=== PATIENT | male | born 1960 | race Caucasian/White ===

== ENCOUNTER 2023-08-16 13:17 | Observation (INO) | payer MEDICARE, OTHER ==
--- NOTE | 2023-08-16 14:15 | ED ---
Abdominal Pain HPI - General Chief Complaint: Abdominal Pain Stated Complaint: Burning pain in abd, edema Time Seen by Provider: 08/16/23 13:47 Source: patient, RN notes reviewed Mode of arrival: ambulatory Limitations: no limitations - History of Present Illness Initial Comments: This is a 63-year-old male who presents to the emergency department for ab dominal pain and swelling. Patient has a history of liver disease requiring paracentesis. States that he had a paracentesis 3.5 months ago and the swelling has been increasing since. Describes this as a burning pain. Also reports swelling in his lower extremities. Denies any chest pain or shortness of breath. He is currently at [facility] for alcoholism and has been there for about 2 weeks. MD Complaint: abdominal pain - Related Data Home Medications Medication Instructions Recorded Confirmed Acetaminophen Tab [Tylenol] 650 mg PO Q4H PRN 08/16/23 08/16/23 Calcium/Magnesium/Zinc/Vitamin D 1 tab PO TID PRN 08/16/23 08/16/23 334/134/5mg Celecoxib [CeleBREX] 200 mg PO DAILY 08/16/23 08/16/23 Chlorpheniramine Maleate 4 mg PO Q4H PRN 08/16/23 08/16/23 [Chlor-Trimeton] Furosemide [Lasix] 20 mg PO DAILY 08/16/23 08/16/23 Loperamide [Imodium] 4 mg PO QID PRN 08/16/23 08/16/23 Magnesium Hydroxide [Milk of 2,400 mg PO BID PRN 08/16/23 08/16/23 Magnesia] Melatonin 10 mg PO HS 08/16/23 08/16/23 Metoprolol Succinate (ER) [Toprol 25 mg PO DAILY 08/16/23 08/16/23 Xl] Multivitamins, Thera [Multivitamin 1 tab PO DAILY 08/16/23 08/16/23 (formulary)] Mylanta 30 ml PO Q4H PRN 08/16/23 08/16/23 Sacubitril/Valsartan [Entresto 24 1 tab PO BID 08/16/23 08/16/23 mg-26 mg Tablet] Thiamine [Vitamin B-1] 100 mg PO DAILY 08/16/23 08/16/23 ondansetron HCL [Zofran] 8 mg PO Q6H PRN 08/16/23 08/16/23 Allergies Allergy/AdvReac Type Severity Reaction Status Date / Time No Known Allergies Allergy Verified 08/16/23 18:28 Review of Systems ROS Statement: Those systems with pertinent positive or pertinent negative responses have been documented in the HPI. ROS Other: All systems not noted in ROS Statement are negative. Past Medical History Past Medical History: Heart Failure, Hypertension, Liver Disease History of Any Multi-Drug Resistant Organisms: None Reported Additional Past Surgical History / Comment(s): pericentisis Past Psychological History: No Psychological Hx Reported Smoking Status: Current every day smoker Past Alcohol Use History: Daily, Heavy Past Drug Use History: None Reported General Exam Limitations: no limitations General appearance: alert, in no apparent distress Head exam: Present: atraumatic, normocephalic, normal inspection Respiratory exam: Present: normal lung sounds bilaterally. Absent: respiratory distress, wheezes, rales, rhonchi, stridor Cardiovascular Exam: Present: regular rate, normal rhythm, normal heart sounds. Absent: systolic murmur, diastolic murmur, rubs, gallop, clicks GI/Abdominal exam: Present: distended Neurological exam: Present: alert, oriented X3, CN II-XII intact Psychiatric exam: Present: normal affect, normal mood Skin exam: Present: warm, dry, intact, normal color. Absent: rash Course Vital Signs 08/16/23 08/16/23 13:39 16:00 Temperature 97.8 F Pulse Rate 74 75 Respiratory 18 18 Rate Blood Pressure 110/74 124/83 O2 Sat by Pulse 98 95 Oximetry Medical Decision Making - Medical Decision Making This is a 63 year old male who presents to the emergency department for abdominal pain. Was pt. sent in by a medical professional or institution? @ -[facility] Did you speak to anyone other than the patient for history? @ -No Did you review nursing and triage notes? @ -Yes, and I agree, it is accurate with regards to the patient's symptoms. Were old charts reviewed? @ -No Differential Diagnosis? @ -Differential Abdominal Pain Men: Appendicitis, cholecystitis, diverticulosis, ischemic bowel, pancreatitis, hepatitis, UTI, gastroenteritis, AAA, incarcerated hernia, bowel obstruction, constipation, inflammatory bowel, hepatitis, peptic ulcer disease, splenic infarction, perforated viscus, testicular torsion, this is not meant to be an all-inclusive list EKG interpreted by me (3pts min.)? @ -EKG interpreted by me demonstrating the following: Sinus rhythm. Ventricular rate 63 bpm, LA interval 192 ms, QRS duration 93 ms, QTc 411 ms. X-rays interpreted by me (1pt min.)? @ -Not obtained CT interpreted by me (1pt min.)? @ -CT scan of the abdomen and pelvis obtained. My interpretation identifies ascites. U/S interpreted by me (1pt. min.)? @ -Not obtained What testing was considered but not performed? (CT, X-rays, U/S, labs)? Why? @ -None What meds were considered but not given? Why? @ -None Did you discuss the management of the patient with other professionals? @ -Yes, Chrissie Calixto who accepts the patient for admission. Did you reconcile home meds? @ -Yes Was smoking cessation discussed for >3mins.? @ -I discussed smoking cessation for greater than 3 minutes. The risk of smoking were discussed with the patient including but not limited to risks of cancer, stroke, coronary artery disease and COPD. Also discussed with patient were multiple methods of quitting smoking. Lastly we discussed the financial cost of smoking. Was critical care preformed (if so, how long)? @ -No Were there social determinants of health that impacted care today? How? (Homelessness, low income, unemployed, alcoholism, drug addiction, transportation, low edu. Level, literacy, decrease access to med. care, long-term, rehab)? @ -Alcoholism, leading to the cirrhosis and ascites, which is the reason for his visit today. Was there de-escalation of care discussed even if they declined? (Discuss DNR or withdrawal of care, Hospice)? @ -No What co-morbidities impacted this encounter? (DM, HTN, Smoking, COPD, CAD, Cancer, CVA, Hep., AIDS, mental health diagnosis, sleep apnea, morbid obesity)? @ -Alcoholism, cirrhosis Was patient admitted / discharged? @ -Admitted. Lab work demonstrates mildly elevated alkaline phosphatase of 207 and lipase of 433. CT scan of the abdomen and pelvis obtained demonstrating cirrhotic hepatic morphology and a moderate to large amount of abdominopelvic ascites. Patient admitted to medicine for ascites, consult placed for interve ntional radiology for paracentesis. Undiagnosed new problem with uncertain prognosis? @ -None Drug Therapy requiring intensive monitoring for toxicity (Heparin, Nitro, Insulin, Cardizem)? @ -None Were any procedures done? @ -None Diagnosis/symptom? @ -Ascites Acute, or Chronic, or Acute on Chronic? @ -Acute Uncomplicated (without systemic symptoms) or Complicated (systemic symptoms)? @ -Complicated Side effects of treatment? @ -None Exacerbation, Progression, or Severe Exacerbation] @ -Not applicable Poses a threat to life or bodily function? @ -Yes This case was discussed in detail with the attending ED physician, Dr. Bravo. Presentation, findings, and treatment plan discussed in detail as well. - Lab Data Result diagrams: 08/16/23 14:20 08/16/23 14:20 Lab Results 08/16/23 08/16/23 08/16/23 Range/Units 14:20 14:20 14:20 WBC 9.1 (3.8-10.6) k/uL RBC 3.80 L (4.30-5.90) m/uL Hgb 12.1 L (13.0-17.5) gm/dL Hct 37.0 L (39.0-53.0) % MCV 97.4 (80.0-100.0) fL MCH 31.7 (25.0-35.0) pg MCHC 32.6 (31.0-37.0) g/dL RDW 14.2 (11.5-15.5) % Plt Count 264 (150-450) k/uL MPV 8.3 Neutrophils % 62 % Lymphocytes % 26 % Monocytes % 7 % Eosinophils % 2 % Basophils % 0 % Neutrophils # 5.6 (1.3-7.7) k/uL Lymphocytes # 2.3 (1.0-4.8) k/uL Monocytes # 0.6 (0-1.0) k/uL Eosinophils # 0.2 (0-0.7) k/uL Basophils # 0.0 (0-0.2) k/uL PT 11.1 (10.0-12.5) sec INR 1.0 (<1.2) APTT 32.7 H (22.0-30.0) sec Sodium 137 (137-145) mmol/L Potassium 4.5 (3.5-5.1) mmol/L Chloride 106 (98-107) mmol/L Carbon Dioxide 26 (22-30) mmol/L Anion Gap 5 mmol/L BUN 19 (9-20) mg/dL Creatinine 0.74 (0.66-1.25) mg/dL Est GFR (CKD-EPI)AfAm >90 (>60 ml/min/1.73 sqM) Est GFR (CKD-EPI)NonAf >90 (>60 ml/min/1.73 sqM) Glucose 99 (74-99) mg/dL Plasma Lactic Acid Felipe (0.7-2.0) mmol/L Calcium 9.0 (8.4-10.2) mg/dL Total Bilirubin 0.6 (0.2-1.3) mg/dL Conjugated Bilirubin 0.0 (0.0-0.3) mg/dL Unconjugated Bilirubin 0.2 (0.0-1.1) mg/dL Delta Bilirubin 0.4 H (0.0-0.2) mg/dL AST 47 (17-59) U/L ALT 28 (4-49) U/L Alkaline Phosphatase 207 H (38-126) U/L NT-Pro-B Natriuret Pep 69 pg/mL Total Protein 7.3 (6.3-8.2) g/dL Albumin 3.7 (3.5-5.0) g/dL Amylase 79 (30-110) U/L Lipase 433 H (23-300) U/L 08/16/23 Range/Units 14:20 WBC (3.8-10.6) k/uL RBC (4.30-5.90) m/uL Hgb (13.0-17.5) gm/dL Hct (39.0-53.0) % MCV (80.0-100.0) fL MCH (25.0-35.0) pg MCHC (31.0-37.0) g/dL RDW (11.5-15.5) % Plt Count (150-450) k/uL MPV Neutrophils % % Lymphocytes % % Monocytes % % Eosinophils % % Basophils % % Neutrophils # (1.3-7.7) k/uL Lymphocytes # (1.0-4.8) k/uL Monocytes # (0-1.0) k/uL Eosinophils # (0-0.7) k/uL Basophils # (0-0.2) k/uL PT (10.0-12.5) sec INR (<1.2) APTT (22.0-30.0) sec Sodium (137-145) mmol/L Potassium (3.5-5.1) mmol/L Chloride (98-107) mmol/L Carbon Dioxide (22-30) mmol/L Anion Gap mmol/L BUN (9-20) mg/dL Creatinine (0.66-1.25) mg/dL Est GFR (CKD-EPI)AfAm (>60 ml/min/1.73 sqM) Est GFR (CKD-EPI)NonAf (>60 ml/min/1.73 sqM) Glucose (74-99) mg/dL Plasma Lactic Acid Felipe 0.8 (0.7-2.0) mmol/L Calcium (8.4-10.2) mg/dL Total Bilirubin (0.2-1.3) mg/dL Conjugated Bilirubin (0.0-0.3) mg/dL Unconjugated Bilirubin (0.0-1.1) mg/dL Delta Bilirubin (0.0-0.2) mg/dL AST (17-59) U/L ALT (4-49) U/L Alkaline Phosphatase (38-126) U/L NT-Pro-B Natriuret Pep pg/mL Total Protein (6.3-8.2) g/dL Albumin (3.5-5.0) g/dL Amylase (30-110) U/L Lipase (23-300) U/L - Radiology Data Radiology results: report reviewed, image reviewed Disposition Clinical Impression: Ascites, Cirrhosis, Nicotine dependence Disposition: ADMITTED IP TO THIS [facility] Time of Disposition: 17:58
[2023-08-16 14:46] LABS: Basophils % (A) 0 %; Eosinophils # (A) 0.2 k/uL (0-0.7); Eosinophils % (A) 2 %; HGB 12.1 gm/dL (13.0-17.5); Lymphocytes # (A) 2.3 k/uL (1.0-4.8); Lymphocytes % (A) 26 %; MCH 31.7 pg (25.0-35.0); MCHC 32.6 g/dL (31.0-37.0); MCV 97.4 fL (80.0-100.0); Mean Platelet Volume 8.3; Monocytes # (A) 0.6 k/uL (0-1.0); Monocytes % (A) 7 %; Neutrophils # (A) 5.6 k/uL (1.3-7.7); Neutrophils % (A) 62 %; Platelet Count 264 k/uL (150-450); RDW 14.2 % (11.5-15.5); WBC 9.1 k/uL (3.8-10.6)
[2023-08-16 14:59] LABS: ALT 28 U/L (4-49); AST 47 U/L (17-59); African American GFR (CKD) >90 (>60 ml/min/1.73 sqM); Albumin 3.7 g/dL (3.5-5.0); Alkaline Phosphatase 207 U/L (38-126); Amylase 79 U/L (30-110); Anion Gap 5 mmol/L; Bilirubin, Delta 0.4 mg/dL (0.0-0.2); Bilirubin,Unconjugated 0.2 mg/dL (0.0-1.1); Blood Urea Nitrogen 19 mg/dL (9-20); Carbon Dioxide 26 mmol/L (22-30); Chloride 106 mmol/L (98-107); Glucose 99 mg/dL (74-99); Lipase 433 U/L (23-300); Non-African American GFR(CKD) >90 (>60 ml/min/1.73 sqM); Potassium 4.5 mmol/L (3.5-5.1); Sodium 137 mmol/L (137-145); Total Bilirubin 0.6 mg/dL (0.2-1.3); Total Protein 7.3 g/dL (6.3-8.2)
[2023-08-16 15:03] LABS: Partial Thromboplastin Time 32.7 sec (22.0-30.0); Prothrombin Time 11.1 sec (10.0-12.5)
[2023-08-16 15:08] LABS: NT-Pro-B-Type Natriuretic Pept 69 pg/mL
--- NOTE | 2023-08-16 17:40 | CT ---
EXAMINATION TYPE: CT abdomen pelvis w con CT DLP: 1520.9 mGycm, Automated exposure control for dose reduction was used. DATE OF EXAM: 08/16/2023 3:38 PM COMPARISON: None. CLINICAL INDICATION:Male, 63 years old with history of Abdominal distention; abd swelling/ ascites TECHNIQUE: Axial CT of the abdomen and pelvis. Sagittal and coronal reformats were created on a [employer] workstation. Contrast used:100 mL of Isovue 300 with IV Contrast, (none if empty) Oral contrast used: without Oral Contrast (none if empty) FINDINGS: LOWER CHEST: No basilar lung infiltrate. Heart size is normal. Moderate calcification of the visualiz ed coronary arteries. Partially visualized aortic valve calcification. No pericardial effusion. ABDOMEN LIVER: Cirrhotic hepatic morphology. No focal lesion is detected. GALLBLADDER AND BILE DUCTS: Gallbladder is contracted around multiple small calcified gallstones. The re is pericholecystic fluid likely related to the ascites. PANCREAS: Unremarkable. SPLEEN: Mildly prominent size 13.3 cm, otherwise unremarkable ADRENAL GLANDS: Unremarkable. KIDNEYS AND URETERS: Kidneys enhance symmetrically. There is a 15 mm cyst in the posterior right kidn ey. No visible calculi. No hydronephrosis. PELVIS BLADDER: Unremarkable REPRODUCTIVE: Unremarkable. ABDOMEN & PELVIS STOMACH AND BOWEL: Stomach and small bowel are nondistended, no evidence of obstruction. What appea rs to be the appendix is within normal limits. There is moderate amount of stool throughout the colon . Multiple sigmoid region diverticula without signs of diverticulitis. PERITONEUM/RETROPERITONEUM: No evidence of pneumoperitoneum. There is a moderate to large volume of a bdominopelvic ascites. There is haziness in the mesenteric fat likely related to mesenteric edema. So me areas of the intraperitoneal fat have a vaguely micronodular appearance, and the possibility of ve ry early implants cannot be entirely excluded. There is no omental caking seen. VASCULATURE: Portal veins are enhancing and the main portal vein measures 17.5 mm. SMV and splenic ve in are patent. There are multiple generally small venous collaterals seen in the abdomen including p erigastric varices. IVC is normal caliber. Moderate calcification of the aorta and branches without s ignificant stenosis of the mesenteric or renal arteries. No AAA. LYMPH NODES: No enlarged nodes by CT size criteria. SOFT TISSUE/ABDOMINAL WALL: Unremarkable MUSCULOSKELETAL: No acute osseous abnormalities. Moderate disc degeneration changes are present throu ghout the thoracolumbar spine. IMPRESSION: 1. Cirrhotic hepatic morphology. 2. Findings suggestive of portal hypertension. 3. Moderate to large volume of abdominopelvic ascites. 4. Colonic diverticulosis without evidence of diverticulitis. 5. Moderate atherosclerotic calcification of the abdominal aorta, and coronary arteries. 6. Cholelithiasis.
[2023-08-16] MEDS ORDERED: KETOROLAC 15 MG/ML 1 ML VIAL IVP PRN (18:05)
[2023-08-16] MEDS ORDERED: NALOXONE 0.4 MG/ML 1 ML VIAL IV PRN (18:05)
[2023-08-16] MEDS ORDERED: ACETAMINOPHEN TAB 325 MG TAB PO PRN ×2 (18:05→19:41)
[2023-08-16] MEDS ORDERED: ONDANSETRON 4 MG/2 ML VIAL IVP PRN (18:05)
[2023-08-16] MEDS ORDERED: NON FORMULARY DRUG (Calcium/Magnesium/Zinc/Vitamin D 334/134/5mg 1 TAB) PO PRN (19:41)
[2023-08-16] MEDS ORDERED: MAG HYDROX/AL HYDROX/SIMETH 30 ML CUP PO PRN (19:41)
[2023-08-16] MEDS ORDERED: diphenhydrAMINE 25 MG CAP PO PRN (19:41)
[2023-08-16] MEDS ORDERED: ONDANSETRON 4 MG TAB PO PRN (19:41)
[2023-08-16] MEDS ORDERED: LOPERAMIDE 2 MG CAP PO PRN (19:41)
[2023-08-16] MEDS: SACUBITRIL/VALSARTAN 24 MG-26 MG TABLET PO SCH (22:39)
[2023-08-16] MEDS: MELATONIN 5 MG TABLET PO SCH (22:39)
--- NOTE | 2023-08-17 11:49 | US ---
EXAMINATION TYPE: US paracentesis abd w/image (diagnostic and therapeutic) DATE OF EXAM: 08/17/2023 CLINICAL HISTORY: 63-year-old male alcohol use, liver disease, ascites fluid, referred for paracente sis. The procedure was discussed with the patient. The risks, complications, benefits, and alternatives we re discussed and any questions were answered. Informed consent was obtained. The patient was placed s upine on the ultrasound table and prepped and draped in the usual sterile fashion. All elements of maximal barrier technique were utilized. Ultrasound was utilized to determine the precise skin entry site along the right lower quadrant/left flank. A 5 [place] One-Step catheter and trocar technique was utilized to access the ascites collection under direct ultrasound guidance. Two 60 mL syringes were filled with a clear, straw-colored ascites fluid, labeled, and sent for labor atory analysis. Subsequently, approximately 5.2 liters of clear, straw-colored fluid was removed. Catheter was removed, hemostasis obtained, and a dressing placed. The patient was stable throughout the procedure and remained stable upon discharge from Department of Radiology. IMPRESSION: Successful diagnostic and therapeutic paracentesis under ultrasound guidance. 5.2 L of fluid removed.
[2023-08-17] MEDS: METOPROLOL SUCCINATE (ER) 25 MG TAB.ER.24H PO SCH (12:04)
[2023-08-17] MEDS: MELOXICAM 7.5 MG TAB PO SCH (12:04)
[2023-08-17] MEDS: MULTIVITAMINS, THERA 1 EACH TAB PO SCH (12:04)
[2023-08-17] MEDS: FUROSEMIDE 20 MG TAB PO SCH (12:04)
[2023-08-17] MEDS: THIAMINE 100 MG TAB PO SCH (12:05)
[2023-08-17] MEDS: PANTOPRAZOLE 40 MG/10 ML VIAL IV SCH (12:36)
[2023-08-17] MEDS: ALBUMIN HUMAN 25% 50 ML in EMPTY BAG 1 BAG IVPB SCH (12:37)
[2023-08-17 13:41] VITALS: BMI 29.2
--- NOTE | 2023-08-17 20:21 | P.HPIM ---
History of Present Illness H&P Date: 08/17/23 Chief Complaint: Distended abdomen This is a pleasant 63-year-old patient, follows with Dr. Brett Castorena. Patient currently in rehab for alcohol at [facility] for last 2 weeks. Was smoking up to 2 weeks ago. Patient was diagnosed with cirrhosis about 2 years ago[address] Did see Dr. Chava Mejias from GI. Patient been having increasing swelling of the abdomen for 2 weeks with some discomfort. No fever no chills. No change of consciousness. Some shortness of breath. Edema. Came in for the same. Last drink was about 3 weeks ago. Review of systems: GEN.: Tired EYES: None HEENT: None NECK: None RESPIRATORY: [Some shortness of breath CARDIOVASCULAR: None GASTROINTESTINAL: As above GENITOURINARY: None MUSCULOSKELETAL: None LYMPHATICS: None HEMATOLOGICAL: None PSYCHIATRY: None NEUROLOGICAL: None Social history: Lives alone. Smoked 2 packs a day for many years. Stopped 2 weeks ago. Drinking alcohol for long time last drink about 3 weeks ago. Physical examination: VITAL SIGNS: 97.6, 88, 16, 122 x 72, 95% room air GENERAL: BMI 29.3,. Laying in bed not in distress EYES: Pupils equal. Conjunctiva nolberto l. HEENT: External appearance of nose and ears normal, oral cavity grossly normal. NECK: JVD not raised; masses not palpable. HEART: First and second heart sounds are normal; no edema. LUNGS: Respiratory rate normal; decreased breath sounds. ABDOMEN: Soft, distended nontender, liver spleen not palpable, no masses palpable. PSYCH: Alert and oriented x3; mood and affect nolberto l. MUSCULOSKELETAL:No Clubbing/cyanosis;muscles-grossly intact NEUROLOGICAL: Cranial nerves grossly intact; no facial asymmetry, power and sensation grossly intact. LYMPHATICS: No lymph nodes palpable in the axilla and neck INVESTIGATIONS, reviewed in the clinical context: August 20, 2023: White count 9.1 hemoglobin 12.1 platelets 264 sodium 137 potassium 4.5 BUN 19 creatinine 0.74 AST 47 ALT 28 lipase 433 amylase 79 EKG tracing personally reviewed by me-normal sinus rhythm. Poor R wave progression. CT abdomen pelvis: Cirrhosis. Evidence of portal hypertension. Moderate to large ascites. Colonic diverticulosis. Gallstones. Assessment plan: -Symptomatic large ascites secondary to portal hypertension secondary to cirrhosis. For large-volume paracentesis Fluid restriction. Low-sodium diet. Add Aldactone. -Cirrhosis secondary to alcoholism Patient does follow with Dr. Chava Mejias -Alcohol use disorder Thiamine. Multivitamin. Folic acid. Patient is currently at [facility] for rehab -Chronic congestive heart failure from systolic dysfunction. EF not known. Toprol-XL. Entresto. -COPD no current smoker Albuterol as needed -Left shoulder pain Stop Celebrex. Use topical NSAID. -Full code Care was discussed with the patient. Questions answered. Paracentesis. Past Medical History Past Medical History: Heart Failure, GI Bleed, Hypertension, Liver Disease Additional Past Medical History / Comment(s): Left shoulder injury due to fall 6 months ago with steroid injection History of Any Multi-Drug Resistant Organisms: None Reported Additional Past Surgical History / Comment(s): pericentisis Past Anesthesia/Blood Transfusion Reactions: No Reported Reaction Past Psychological History: No Psychological Hx Reported Smoking Status: Current every day smoker Past Alcohol Use History: Daily, Heavy Additional Past Alcohol Use History / Comment(s): has been in rehab for etoh for past 2 weeks Past Drug Use History: None Reported - Past Family History Father Family Medical History: Liver Disease Additional Family Medical History / Comment(s): Etoh Mother Family Medical History: Diabetes Mellitus Medications and Allergies Home Medications Medication Instructions Recorded Confirmed Type Acetaminophen Tab [Tylenol] 650 mg PO Q4H PRN 08/16/23 08/16/23 History Calcium/Magnesium/Zinc/Vitamin D 1 tab PO TID PRN 08/16/23 08/16/23 History 334/134/5mg Celecoxib [CeleBREX] 200 mg PO DAILY 08/16/23 08/16/23 History Chlorpheniramine Maleate 4 mg PO Q4H PRN 08/16/23 08/16/23 History [Chlor-Trimeton] Furosemide [Lasix] 20 mg PO DAILY 08/16/23 08/16/23 History Loperamide [Imodium] 4 mg PO QID PRN 08/16/23 08/16/23 History Magnesium Hydroxide [Milk of 2,400 mg PO BID PRN 08/16/23 08/16/23 History Magnesia] Melatonin 10 mg PO HS 08/16/23 08/16/23 History Metoprolol Succinate (ER) [Toprol 25 mg PO DAILY 08/16/23 08/16/23 History Xl] Multivitamins, Thera [Multivitamin 1 tab PO DAILY 08/16/23 08/16/23 History (formulary)] Mylanta 30 ml PO Q4H PRN 08/16/23 08/16/23 History Sacubitril/Valsartan [Entresto 24 1 tab PO BID 08/16/23 08/16/23 History mg-26 mg Tablet] Thiamine [Vitamin B-1] 100 mg PO DAILY 08/16/23 08/16/23 History ondansetron HCL [Zofran] 8 mg PO Q6H PRN 08/16/23 08/16/23 History Allergies Allergy/AdvReac Type Severity Reaction Status Date / Time No Known Allergies Allergy Verified 08/17/23 10:29 Physical Exam Vitals: Vital Signs Temp Pulse Pulse Resp BP BP Pulse Ox 08/17/23 08:00 97.6 F 88 122/72 95 08/17/23 02:52 98.4 F 72 13 117/73 96 08/16/23 20:55 98.8 F 78 15 154/85 97 08/16/23 20:15 87 18 128/70 98 08/16/23 16:00 75 18 124/83 95 08/16/23 13:39 97.8 F 74 18 110/74 98 Intake and Output 08/16/23 08/17/23 08/17/23 22:59 06:59 14:59 Other: # Voids 3 Weight 95.254 kg Results CBC & Chem 7: 08/16/23 14:20 08/16/23 14:20 Labs: Abnormal Lab Results - Last 24 Hours (Table) 08/16/23 08/16/23 08/16/23 Range/Units 14:20 14:20 14:20 RBC 3.80 L (4.30-5.90) m/uL Hgb 12.1 L (13.0-17.5) gm/dL Hct 37.0 L (39.0-53.0) % APTT 32.7 H (22.0-30.0) sec Delta Bilirubin 0.4 H (0.0-0.2) mg/dL Alkaline Phosphatase 207 H (38-126) U/L Lipase 433 H (23-300) U/L Thrombosis Risk Factor Assmnt - Choose All That Apply Each Factor Represents 1 point: Swollen legs (current) Other Risk Factors: Yes Each Risk Factor Represents 2 Points: Age 61-74 years Other congenital or acquired thrombophilia - If yes, enter type in comment: No Thrombosis Risk Factor Assessment Total Risk Factor Score: 3 Thrombosis Risk Factor Assessment Level: Moderate Risk
[2023-08-18 04:08] LABS: Glucose, BF Source Ascites; Glucose, Body Fluid 106 mg/dL; LDH, Body Fluid Source Ascites; T. Protein, Body Fluid Source Ascites; Total Protein, Body Fluid >3600 mg/dL
[2023-08-18 04:50] LABS: Appearance,BF Clear (Clear)
[2023-08-18 07:01] LABS: African American GFR (CKD) >90 (>60 ml/min/1.73 sqM); Anion Gap 9 mmol/L; Blood Urea Nitrogen 16 mg/dL (9-20); Calcium 8.9 mg/dL (8.4-10.2); Carbon Dioxide 24 mmol/L (22-30); Chloride 106 mmol/L (98-107); Glucose 84 mg/dL (74-99); Non-African American GFR(CKD) >90 (>60 ml/min/1.73 sqM); Potassium 4.2 mmol/L (3.5-5.1); Sodium 139 mmol/L (137-145)
[2023-08-18] MEDS: SPIRONOLACTONE 25 MG TAB PO SCH (08:49)
[2023-08-18] MEDS ORDERED: FUROSEMIDE 40 MG TAB PO SCH (09:00)
[2023-08-18] MEDS: MAGNESIUM HYDROXIDE 2,400 MG/30 ML CUP PO PRN (10:08)
[2023-08-18 11:14] VITALS: BP 134/75; PULSE 70; RESP 15; TEMP 97.9
--- NOTE | 2023-08-18 19:36 | P.DS ---
Providers Date of admission: 08/16/23 18:05 Expected date of discharge: 08/18/23 Attending physician: Javon Zamora Primary care physician: Brett Castorena [facility] Course: Chief Complaint: Distended abdomen This is a pleasant 63-year-old patient, follows with Dr. Brett Castorena. Patient currently in rehab for alcohol at [facility] for last 2 weeks. Was smoking up to 2 weeks ago. Patient was diagnosed with cirrhosis about 2 years ago[address] Did see Dr. Chava Mejias from GI. Patient been having increasing swelling of the abdomen for 2 weeks with some discomfort. No fever no chills. No change of consciousne ss. Some shortness of breath. Edema. Came in for the same. Last drink was about 3 weeks ago. August 17: Feeling well. Eating well. Was given a laxative for bowel movement. Patient be returning to [facility]. Medications adjusted. The restriction. Low-sodium diet. Follow-up with Dr. Chava Mejias outpatient. Discussion and discharge planning more than 35 minutes Social history: Lives alone. Smoked 2 packs a day for many years. Stopped 2 weeks ago. Drinking alcohol for long time last drink about 3 weeks ago. Physical examination: VITAL SIGNS: 97.9, 70, 15, 134 personally 5, 95% room air GENERAL: Comfortable EYES: Pupils equal. Conjunctiva nolberto l. HEENT: External appearance of nose and ears normal, oral cavity grossly normal. NECK: JVD not raised; masses not palpable. HEART: First and second heart sounds are normal; no edema. LUNGS: Respiratory rate normal; decreased breath sounds. ABDOMEN: Soft, distended nontender, liver spleen not palpable, no masses palpable. PSYCH: Alert and oriented x3; mood and affect nolberto l. MUSCULOSKELETAL:No Clubbing/cyanosis;muscles-grossly intact NEUROLOGICAL: Cranial nerves grossly intact; no facial asymmetry, power and sensation grossly intact. INVESTIGATIONS, reviewed in the clinical context: August 17: Potassium 4.2 creatinine 0.77 August 16, 2023: White count 9.1 hemoglobin 12.1 platelets 264 sodium 137 potassium 4.5 BUN 19 creatinine 0.74 AST 47 ALT 28 lipase 433 amylase 79 EKG tracing personally reviewed by me-normal sinus rhythm. Poor R wave progression. CT abdomen pelvis: Cirrhosis. Evidence of portal hypertension. Moderate to large ascites. Colonic diverticulosis. Gallstones. Assessment plan: -Symptomatic large ascites secondary to portal hypertension secondary to cirrhosis. 5.2 L of acetic fluid removed. Albumin given. Fluid restriction. Low-sodium diet. Aldactone -Cirrhosis secondary to alcoholism Patient does follow with Dr. Chava Mejias -Alcohol use disorder Thiamine. Multivitamin. Folic acid. Patient is currently at [facility] for rehab -Chronic congestive heart failure from systolic dysfunction. EF not known. Toprol-XL. Entresto. -COPD no current smoker Albuterol as needed -Left shoulder pain Stop Celebrex. Diclofenac gel -Full code Disposition: [facility] Past Medical History Past Medical History: Heart Failure, GI Bleed, Hypertension, Liver Disease Additional Past Medical History / Comment(s): Left shoulder injury due to fall 6 months ago with steroid injection History of Any Multi-Drug Resistant Organisms: None Reported Additional Past Surgical History / Comment(s): pericentisis Past Anesthesia/Blood Transfusion Reactions: No Reported Reaction Past Psychological History: No Psychological Hx Reported Smoking Status: Current every day smoker Past Alcohol Use History: Daily, Heavy Additional Past Alcohol Use History / Comment(s): has been in rehab for etoh for past 2 weeks Past Drug Use History: None Reported Plan - Discharge Summary Discharge Rx Participant: No New Discharge Prescriptions: New Spironolactone [Aldactone] 100 mg PO DAILY #30 tab Diclofenac Sodium Gel [Voltaren 1% Gel] 2 gm TOPICAL BID #100 gm Continue Mylanta 30 ml PO Q4H PRN PRN Reason: Gi Upset Acetaminophen Tab [Tylenol] 650 mg PO Q4H PRN PRN Reason: Fever And/ Or Pain Melatonin 10 mg PO HS Multivitamins, Thera [Multivitamin (formulary)] 1 tab PO DAILY Sacubitril/Valsartan [Entresto 24 mg-26 mg Tablet] 1 tab PO BID Thiamine [Vitamin B-1] 100 mg PO DAILY Calcium/Magnesium/Zinc/Vitamin D 334/134/5mg 1 tab PO TID PRN PRN Reason: Muscle Spasm Chlorpheniramine Maleate [Chlor-Trimeton] 4 mg PO Q4H PRN PRN Reason: Allergy Symptoms Furosemide [Lasix] 20 mg PO DAILY Loperamide [Imodium] 4 mg PO QID PRN PRN Reason: Diarrhea Magnesium Hydroxide [Milk of Magnesia] 2,400 mg PO BID PRN PRN Reason: Gi Upset Metoprolol Succinate (ER) [Toprol XL] 25 mg PO DAILY ondansetron HCL [Zofran] 8 mg PO Q6H PRN PRN Reason: Nausea And Vomiting Discontinued Celecoxib [CeleBREX] 200 mg PO DAILY Discharge Medication List Acetaminophen Tab [Tylenol] 650 mg PO Q4H PRN 08/16/23 [History] Calcium/Magnesium/Zinc/Vitamin D 334/134/5mg 1 tab PO TID PRN 08/16/23 [History] Chlorpheniramine Maleate [Chlor-Trimeton] 4 mg PO Q4H PRN 08/16/23 [History] Furosemide [Lasix] 20 mg PO DAILY 08/16/23 [History] Loperamide [Imodium] 4 mg PO QID PRN 08/16/23 [History] Magnesium Hydroxide [Milk of Magnesia] 2,400 mg PO BID PRN 08/16/23 [History] Melatonin 10 mg PO HS 08/16/23 [History] Metoprolol Succinate (ER) [Toprol XL] 25 mg PO DAILY 08/16/23 [History] Multivitamins, Thera [Multivitamin (formulary)] 1 tab PO DAILY 08/16/23 [History] Mylanta 30 ml PO Q4H PRN 08/16/23 [History] Sacubitril/Valsartan [Entresto 24 mg-26 mg Tablet] 1 tab PO BID 08/16/23 [History] Thiamine [Vitamin B-1] 100 mg PO DAILY 08/16/23 [History] ondansetron HCL [Zofran] 8 mg PO Q6H PRN 08/16/23 [History] Diclofenac Sodium Gel [Voltaren 1% Gel] 2 gm TOPICAL BID #100 gm 08/18/23 [Rx] Spironolactone [Aldactone] 100 mg PO DAILY #30 tab 08/18/23 [Rx] Follow up Appointment(s)/Referral(s): Brett Castorena MD [Primary Care Provider] - 1-2 days Melissa Mejias MD [STAFF PHYSICIAN] - 10 Days Activity/Diet/Wound Care/Special Instructions: low sodium diet fluid restrict 2000 cc/day Discharge Disposition: OTHER INSTITUTION NOT DEFINED
== END 2023-08-18 15:08 | disposition other institution (70) ==
LOC: EC 13:17 → MERGE 18:05 → 4SSUR 18:05
PROVIDERS: ADMIT Hospitalist; ATTEND Hospitalist
DX: K70.31 Alcoholic cirrhosis of liver with ascites (principal); K76.6 Portal hypertension; I11.0 Hypertensive heart disease with heart failure; I50.22 Chronic systolic (congestive) heart failure; F10.20 Alcohol dependence, uncomplicated; K57.30 Diverticulosis of large intestine without perforation or abscess without bleeding; K80.20 Calculus of gallbladder without cholecystitis without obstruction; M25.512 Pain in left shoulder; F17.210 Nicotine dependence, cigarettes, uncomplicated; Z79.1 Long term (current) use of non-steroidal anti-inflammatories (NSAID); Z79.899 Other long term (current) drug therapy
CPT/HCPCS: 99285; 36415; 93005; 83880; 80053; 80048; 89050; 82150; 82248; 83605; 83690; 85025; 85610; 85730; 87070; 87205; 87075; 82945; 83615; 84157; 49083; 74177; G0378 ×3; P9047; Q9967

== ENCOUNTER 2024-02-22 10:03 | Observation (INO) | payer MEDICARE, OTHER ==
--- NOTE | 2024-02-22 10:50 | ED ---
General Adult HPI - General Chief complaint: Shortness of Breath Stated complaint: abd swelling Time Seen by Provider: 02/22/24 10:25 Source: patient, RN notes reviewed Mode of arrival: ambulatory Limitations: no limitations - History of Present Illness Initial comments: Patient is a 64-year-old male presenting to the emergency department with concerns for abdominal distention. Symptoms have progressed over several weeks. Patient has history of cirrhosis with similar symptoms previously. Patient has had previous therapeutic paracentesis for this. Patient states abdomen is distended and is causing some mild shortness of breath. Patient also has chronic cough from smoking. Patient has history of alcohol use however discontinued alcohol. - Related Data Home Medications Medication Instructions Recorded Confirmed Acetaminophen Tab [Tylenol] 650 mg PO Q4H PRN 08/16/23 08/16/23 Calcium/Magnesium/Zinc/Vitamin D 1 tab PO TID PRN 08/16/23 08/16/23 334/134/5mg Chlorpheniramine Maleate 4 mg PO Q4H PRN 08/16/23 08/16/23 [Chlor-Trimeton] Furosemide [Lasix] 20 mg PO DAILY 08/16/23 08/16/23 Loperamide [Imodium] 4 mg PO QID PRN 08/16/23 08/16/23 Magnesium Hydroxide [Milk of 2,400 mg PO BID PRN 08/16/23 08/16/23 Magnesia] Melatonin 10 mg PO HS 08/16/23 08/16/23 Metoprolol Succinate (ER) [Toprol 25 mg PO DAILY 08/16/23 08/16/23 XL] Multivitamins, Thera [Multivitamin 1 tab PO DAILY 08/16/23 08/16/23 (formulary)] Mylanta 30 ml PO Q4H PRN 08/16/23 08/16/23 Sacubitril/Valsartan [Entresto 24 1 tab PO BID 08/16/23 08/16/23 mg-26 mg Tablet] Thiamine [Vitamin B-1] 100 mg PO DAILY 08/16/23 08/16/23 ondansetron HCL [Zofran] 8 mg PO Q6H PRN 08/16/23 08/16/23 Previous Rx's Medication Instructions Recorded Diclofenac Sodium Gel [Voltaren 1% 2 gm TOPICAL BID #100 gm 04/23/24 Gel] Spironolactone [Aldactone] 100 mg PO DAILY #30 tab 08/18/23 Allergies Allergy/AdvReac Type Severity Reaction Status Date / Time No Known Allergies Allergy Verified 08/17/23 10:29 Review of Systems ROS Statement: Those systems with pertinent positive or pertinent negative responses have been documented in the HPI. ROS Other: All systems not noted in ROS Statement are negative. Constitutional: Denies: fever Eyes: Denies: eye pain ENT: Denies: ear pain Respiratory: Reports: as per HPI Cardiovascular: Denies: chest pain Gastrointestinal: Reports: as per HPI Genitourinary: Denies: dysuria Musculoskeletal: Denies: back pain Past Medical History Past Medical History: Heart Failure, GI Bleed, Hypertension, Liver Disease Additional Past Medical History / Comment(s): Left shoulder injury due to fall 6 months ago with steroid injection History of Any Multi-Drug Resistant Organisms: None Reported Additional Past Surgical History / Comment(s): pericentisis Past Anesthesia/Blood Transfusion Reactions: No Reported Reaction Past Psychological History: No Psychological Hx Reported Smoking Status: Current every day smoker Past Alcohol Use History: None Reported Past Drug Use History: Marijuana - Past Family History Father Family Medical History: Liver Disease Additional Family Medical History / Comment(s): Etoh Mother Family Medical History: Diabetes Mellitus General Exam Limitations: no limitations General appearance: alert, in no apparent distress Head exam: Present: normocephalic Eye exam: Present: normal appearance Neck exam: Present: normal inspection Respiratory exam: Present: wheezes Cardiovascular Exam: Present: regular rate, normal rhythm GI/Abdominal exam: Present: distended, tenderness (Minimal diffuse tenderness), normal bowel sounds. Absent: guarding, rebound, rigid, pulsatile mass Extremities exam: Absent: calf tenderness Neurological exam: Present: alert Psychiatric exam: Present: normal affect, normal mood Skin exam: Present: normal color Course Vital Signs 02/22/24 02/22/24 02/22/24 10:11 10:19 11:15 Temperature 97.5 F L Pulse Rate 107 H 82 Respiratory 24 18 Rate Blood Pressure 147/82 O2 Sat by Pulse 98 Oximetry 02/22/24 11:24 Temperature Pulse Rate 80 Respiratory Rate Blood Pressure O2 Sat by Pulse Oximetry Medical Decision Making - Medical Decision Making Was pt. sent in by a medical professional or institution (, PA, PROTECTIVE SIGNAL INSTALLER, urgent care, hospital, or skilled nursing...) When possible be specific @ -No Did you speak to anyone other than the patient for history (EMS, parent, family, police, friend...)? What history was obtained from this source @ -No Did you review nursing and triage notes (agree or disagree)? Why? @ -I reviewed and agree with nursing and triage notes Were old charts reviewed (outside hosp., previous admission, EMS record, old EKG, old radiological studies, urgent care reports/EKG's, skilled nursing records)? Report findings @ -No old charts were reviewed Differential Diagnosis (chest pain, altered mental status, abdominal pain women, abdominal pain men, vaginal bleeding, weakness, fever, dyspnea, syncope, headache, dizziness, GI bleed, back pain, seizure, CVA, palpatations, mental health, musculoskeletal)? @ -Differential Abdominal Pain Men: Appendicitis, cholecystitis, diverticulosis, ischemic bowel, pancreatitis, hepatitis, UTI, gastroenteritis, AAA, incarcerated hernia, bowel obstruction, constipation, inflammatory bowel, hepatitis, peptic ulcer disease, splenic infarction, perforated viscus, testicular torsion, this is not meant to be an all-inclusive list EKG interpreted by me (3pts min.). @ -As above X-rays interpreted by me (1pt min.). @ -Chest and abdominal x-ray showed nonspecific findings CT interpreted by me (1pt min.). @ -None done U/S interpreted by me (1pt. min.). @ -None done What testing was considered but not performed or refused? (CT, X-rays, U/S, labs)? Why? @ -None What meds were considered but not given or refused? Why? @ -None Did you discuss the management of the patient with other professionals (professionals i.e. DrAlaina, PA, PROTECTIVE SIGNAL INSTALLER, lab, RT, psych nurse, mental health social worker, soil scientist, teacher, diplomatic officer, case management coordinator)? Give summary @ -Case was discussed with Dr. Navarrete is not who will admit covering Dr. Zamora who admits for Dr. Boogie Was smoking cessation discussed for >3mins.? @ -No Was critical care preformed (if so, how long)? @ -No Were there social determinants of health that impacted care today? How? (Homelessness, low income, unemployed, alcoholism, drug addiction, transpor tation, low edu. Level, literacy, decrease access to med. care, long term, rehab)? @ -No Was there de-escalation of care discussed even if they declined (Discuss DNR or withdrawal of care, Hospice)? DNR status @ -No What co-morbidities impacted this encounter? (DM, HTN, Smoking, COPD, CAD, Cancer, CVA, ARF, Chemo, Hep., AIDS, mental health diagnosis, sleep apnea, morbid obesity)? @ -History of alcoholic liver cirrhosis Was patient admitted / discharged? Hospital course, mention meds given and rout e, prescriptions, significant lab abnormalities, going to OR and other pertinent info. @ -Patient presents with abdominal ascites with history of cirrhosis. Patient's abdomen is fairly distended. Evaluation otherwise unremarkable. Dyspnea improved with DuoNeb. Patient will be admitted for paracentesis, therapeutic Undiagnosed new problem with uncertain prognosis? @ -No Drug Therapy requiring intensive monitoring for toxicity (Heparin, Nitro, Insulin, Cardizem)? @ -No Were any procedures done? @ -No Diagnosis/symptom? @ -Abdominal ascites Acute, or Chronic, or Acute on Chronic? @ -Acute Uncomplicated (without systemic symptoms) or Complicated (systemic symptoms)? @ -Default Side effects of treatment? @ -No Exacerbation, Progression, or Severe Exacerbation? @ -Exacerbation Poses a threat to life or bodily function? How? (Chest pain, [place], AL, pneumonia, PE, COPD, DKA, ARF, appy, cholecystitis, CVA, Diverticulitis, Homicidal, Suicidal, threat to staff... and all critical care pts) @ -No - Lab Data Result diagrams: 02/22/24 10:52 02/22/24 10:52 Lab Results 02/22/24 02/22/24 02/22/24 Range/Units 10:52 10:52 10:52 WBC 7.9 (3.8-10.6) k/uL RBC 4.00 L (4.30-5.90) m/uL Hgb 12.4 L (13.0-17.5) gm/dL Hct 38.7 L (39.0-53.0) % MCV 96.8 (80.0-100.0) fL MCH 31.1 (25.0-35.0) pg MCHC 32.1 (31.0-37.0) g/dL RDW 13.2 (11.5-15.5) % Plt Count 262 (150-450) k/uL MPV 7.8 Neutrophils % 72 % Lymphocytes % 17 % Monocytes % 6 % Eosinophils % 3 % Basophils % 0 % Neutrophils # 5.7 (1.3-7.7) k/uL Lymphocytes # 1.4 (1.0-4.8) k/uL Monocytes # 0.5 (0-1.0) k/uL Eosinophils # 0.2 (0-0.7) k/uL Basophils # 0.0 (0-0.2) k/uL PT 11.1 (10.0-12.5) sec INR 1.0 (<1.2) APTT 32.6 H (22.0-30.0) sec Sodium 138 (137-145) mmol/L Potassium 4.2 (3.5-5.1) mmol/L Chloride 104 (98-107) mmol/L Carbon Dioxide 26 (22-30) mmol/L Anion Gap 8 mmol/L BUN 18 (9-20) mg/dL Creatinine 0.85 (0.66-1.25) mg/dL Est GFR (CKD-EPI)AfAm >90 (>60 ml/min/1.73 sqM) Est GFR (CKD-EPI)NonAf >90 (>60 ml/min/1.73 sqM) Glucose 116 H (74-99) mg/dL Calcium 8.8 (8.4-10.2) mg/dL Total Bilirubin 1.0 (0.2-1.3) mg/dL AST 44 (17-59) U/L ALT 21 (4-49) U/L Alkaline Phosphatase 242 H (38-126) U/L Total Protein 7.4 (6.3-8.2) g/dL Albumin 3.7 (3.5-5.0) g/dL Amylase 50 (30-110) U/L Lipase 177 (23-300) U/L Disposition Clinical Impression: Ascites Disposition: ADMITTED IP TO THIS HOSP Is patient prescribed a controlled substance at d/c from ED?: No Referrals: Brett Castorena MD [Primary Care Provider] - 1-2 days Time of Disposition: 12:49
[2024-02-22 11:05] LABS: Basophils % (A) 0 %; Eosinophils # (A) 0.2 k/uL (0-0.7); Eosinophils % (A) 3 %; HCT 38.7 % (39.0-53.0); HGB 12.4 gm/dL (13.0-17.5); Lymphocytes # (A) 1.4 k/uL (1.0-4.8); Lymphocytes % (A) 17 %; MCH 31.1 pg (25.0-35.0); MCHC 32.1 g/dL (31.0-37.0); MCV 96.8 fL (80.0-100.0); Mean Platelet Volume 7.8; Monocytes # (A) 0.5 k/uL (0-1.0); Monocytes % (A) 6 %; Neutrophils # (A) 5.7 k/uL (1.3-7.7); Neutrophils % (A) 72 %; Platelet Count 262 k/uL (150-450); RDW 13.2 % (11.5-15.5); WBC 7.9 k/uL (3.8-10.6)
[2024-02-22] MEDS: IPRATROPIUM-ALBUTEROL 3 ML NEB INHALATION STA (11:14)
[2024-02-22 11:15] LABS: Partial Thromboplastin Time 32.6 sec (22.0-30.0); Prothrombin Time 11.1 sec (10.0-12.5)
[2024-02-22 11:29] LABS: ALT 21 U/L (4-49); AST 44 U/L (17-59); African American GFR (CKD) >90 (>60 ml/min/1.73 sqM); Albumin 3.7 g/dL (3.5-5.0); Alkaline Phosphatase 242 U/L (38-126); Amylase 50 U/L (30-110); Anion Gap 8 mmol/L; Blood Urea Nitrogen 18 mg/dL (9-20); Calcium 8.8 mg/dL (8.4-10.2); Carbon Dioxide 26 mmol/L (22-30); Chloride 104 mmol/L (98-107); Glucose 116 mg/dL (74-99); Lipase 177 U/L (23-300); Non-African American GFR(CKD) >90 (>60 ml/min/1.73 sqM); Potassium 4.2 mmol/L (3.5-5.1); Sodium 138 mmol/L (137-145); Total Protein 7.4 g/dL (6.3-8.2)
--- NOTE | 2024-02-22 11:53 | P.HPIM ---
History of Present Illness 64-year-old male came in with abdominal distention denied any significant pain has been progressive over several weeks. Patient does have history of cirrhosis from alcohol and also has history of congestive heart failure is on Entresto although his ejection fraction is not known patient denied any fever chills nausea vomiting. Patient does not have any leukocytosis REVIEW OF SYSTEMS: All other systems are negative except those mentioned in the HPI PHYSICAL EXAMINATION: GENERAL: The patient is alert and oriented x3, not in any acute distress. Well developed, well nourished. HEENT: Pupils are round and equally reacting to light. EOMI. No scleral icterus. No conjunctival pallor. Normocephalic, atraumatic. No pharyngeal erythema. No thyromegaly. CARDIOVASCULAR: S1 and S2 present. No murmurs, rubs, or gallops. PULMONARY: Chest is clear to auscultation, no wheezing or crackles. ABDOMEN: Distended abdomen with fluid thrill normoactive bowel sounds. No palpable organomegaly. MUSCULOSKELETAL: No joint swelling or deformity. EXTREMITIES: No cyanosis, clubbing, or pedal edema. NEUROLOGICAL: Gross neurological examination did not reveal any focal deficits. SKIN: No rashes. Assessment and plan -Ascites: Secondary to alcoholic cirrhosis patient will need therapeutic paracentesis after paracentesis if his blood pressure remains okay patient will be discharged. Patient did quit alcohol about any year ago -Congestive heart failure chronic systolic dysfunction presently not in acute exacerbation EF is unknown, patient will be resumed on Entresto -COPD still smoking and trying to quit smoking presently not in COPD exacerbation -Alcoholic cirrhosis DVT prophylaxis: Subcutaneous heparin Past Medical History Past Medical History: Heart Failure, GI Bleed, Hypertension, Liver Disease Additional Past Medical History / Comment(s): Left shoulder injury due to fall 6 months ago with steroid injection History of Any Multi-Drug Resistant Organisms: None Reported Additional Past Surgical History / Comment(s): pericentisis Past Anesthesia/Blood Transfusion Reactions: No Reported Reaction Past Psychological History: No Psychological Hx Reported Smoking Status: Current every day smoker Past Alcohol Use History: None Reported Past Drug Use History: Marijuana - Past Family History Father Family Medical History: Liver Disease Additional Family Medical History / Comment(s): Etoh Mother Family Medical History: Diabetes Mellitus Medications and Allergies Home Medications Medication Instructions Recorded Confirmed Type Acetaminophen Tab [Tylenol] 650 mg PO Q4H PRN 08/16/23 08/16/23 History Calcium/Magnesium/Zinc/Vitamin D 1 tab PO TID PRN 08/16/23 08/16/23 History 334/134/5mg Chlorpheniramine Maleate 4 mg PO Q4H PRN 08/16/23 08/16/23 History [Chlor-Trimeton] Furosemide [Lasix] 20 mg PO DAILY 08/16/23 08/16/23 History Loperamide [Imodium] 4 mg PO QID PRN 08/16/23 08/16/23 History Magnesium Hydroxide [Milk of 2,400 mg PO BID PRN 08/16/23 08/16/23 History Magnesia] Melatonin 10 mg PO HS 08/16/23 08/16/23 History Metoprolol Succinate (ER) [Toprol 25 mg PO DAILY 08/16/23 08/16/23 History XL] Multivitamins, Thera [Multivitamin 1 tab PO DAILY 08/16/23 08/16/23 History (formulary)] Mylanta 30 ml PO Q4H PRN 08/16/23 08/16/23 History Sacubitril/Valsartan [Entresto 24 1 tab PO BID 08/16/23 08/16/23 History mg-26 mg Tablet] Thiamine [Vitamin B-1] 100 mg PO DAILY 08/16/23 08/16/23 History ondansetron HCL [Zofran] 8 mg PO Q6H PRN 08/16/23 08/16/23 History Diclofenac Sodium Gel [Voltaren 1% 2 gm TOPICAL BID #100 gm 08/18/23 Rx Gel] Spironolactone [Aldactone] 100 mg PO DAILY #30 tab 08/18/23 Rx Allergies Allergy/AdvReac Type Severity Reaction Status Date / Time No Known Allergies Allergy Verified 08/17/23 10:29 Physical Exam Vitals: Vital Signs Temp Pulse Resp BP Pulse Ox 02/22/24 11:24 80 02/22/24 11:15 82 02/22/24 10:19 18 02/22/24 10:11 97.5 F L 107 H 24 147/82 98 Intake and Output 02/21/24 02/22/24 02/22/24 22:59 06:59 14:59 Other: Weight 88.451 kg Results CBC & Chem 7: 02/22/24 10:52 02/22/24 10:52 Labs: Abnormal Lab Results - Last 24 Hours (Table) 02/22/24 02/22/24 02/22/24 Range/Units 10:52 10:52 10:52 RBC 4.00 L (4.30-5.90) m/uL Hgb 12.4 L (13.0-17.5) gm/dL Hct 38.7 L (39.0-53.0) % APTT 32.6 H (22.0-30.0) sec Glucose 116 H (74-99) mg/dL Alkaline Phosphatase 242 H (38-126) U/L
--- NOTE | 2024-02-22 11:54 | XR ---
EXAMINATION TYPE: XR chest 2V DATE OF EXAM: 02/22/2024 11:49 AM COMPARISON: Chest radiographs from 07/21/2011 CLINICAL INDICATION: Male, 64 years old with history of abdominal pain; MERGED WITH [facility] TECHNIQUE: XR chest 2V Frontal and lateral views of the chest. FINDINGS: Lungs/Pleura: There is no evidence of pleural effusion, focal consolidation, or pneumothorax. Pulmonary vascularity: Unremarkable. Heart/mediastinum: Cardiomediastinal silhouette is unremarkable. Musculoskeletal: No acute osseous pathology. IMPRESSION: No acute cardiopulmonary disease/process. [facility], , 02/22/2024 11:51 AM
--- NOTE | 2024-02-22 11:57 | XR ---
EXAMINATION TYPE: XR KUB DATE OF EXAM: 02/22/2024 11:49 AM COMPARISON: 08/16/2023 CLINICAL INDICATION: Male, 64 years old with history of abdominal pain; TECHNIQUE: One radiographic view of the abdomen was obtained. FINDINGS: The bowel gas pattern is nonspecific without dilated loops of small or large bowel. . Fecal material and gas are demonstrated throughout the colon and rectum. There is no evidence for organomegaly or pneumoperitoneum. The osseous structures are intact. No ab normal calcifications are present. IMPRESSION: Nonspecific bowel gas pattern without radiographic evidence for acute process. [facility], , 02/22/2024 11:55 AM
[2024-02-22] MEDS ORDERED: NALOXONE 0.4 MG/ML 1 ML VIAL IV PRN (12:49)
--- NOTE | 2024-02-22 13:21 | US ---
EXAMINATION TYPE: US abdomen limited DATE OF EXAM: 02/22/2024 COMPARISON: NONE CLINICAL INDICATION: Male, 64 years old with history of please assess for fluid pocket; assess for as cites Technique: Grayscale imaging of the abdomen for ascites. Large pockets of fluid seen in all 4 quadrants IMPRESSION: Large abdominal ascites. [facility], , 02/22/2024 1:19 PM
--- NOTE | 2024-02-22 16:17 | US ---
EXAMINATION TYPE: US paracentesis abd w/image DATE OF EXAM: 02/22/2024 2:48 PM COMPARISON: prior paracentesis. CLINICAL INDICATION:Male, 64 years old with history of ascites; , ascites ATTENDING: Dr. Daniel Sadler PROCEDURE: Informed consent was obtained. The risks of the procedure were extensively explained incl uding risk of damage to surrounding bowel with perforation and need for additional procedures. Proced ure was performed in the ultrasound procedure suite. Ultrasound imaging of the abdomen demonstrate as citic fluid. An appropriate access site was localized to the right lower abdomen. Timeout was taken p er protocol. The skin was prepped and draped in the usual sterile fashion and then locally anesthetiz ed with 1% lidocaine. The peritoneal cavity was then accessed via a 5-Belgian one-step needle/cathete r. Approximately 79434 cc of clear straw-colored fluid was obtained. Samples were sent to the lab fo r analysis. Postprocedural imaging of the abdomen demonstrate a minimal amount of abdominal fluid. Patient tolerated procedure well without immediate complication. Hemostasis at the procedural site w as obtained with a sterile bandage placed. The patient was monitored in the holding area following th e procedure and was subsequently discharged in stable condition. IMPRESSION: Ultrasound guided paracentesis, with approximately 70977 cc of clear straw-colored fluid drained. Pat hology results pending. No immediate complications were evident. [facility], , 02/22/2024 4:14 PM
[2024-02-22] MEDS: ALBUMIN HUMAN 25% 50 ML in EMPTY BAG 1 BAG IVPB SCH (16:20)
[2024-02-22] MEDS: SODIUM CHLORIDE 0.9% 1,000 ML IV SCH (19:59)
[2024-02-23 04:46] LABS: Appearance,BF Clear (Clear)
[2024-02-23 05:49] LABS: Glucose, BF Source Ascites; Glucose, Body Fluid 96 mg/dL; LDH, Body Fluid Source Ascites
[2024-02-23 06:12] LABS: Albumin, Fluid Source Ascities
[2024-02-23 08:51] VITALS: BP 103/65; PULSE 74; RESP 18; TEMP 98.5
[2024-02-23] MEDS: PANTOPRAZOLE 40 MG/10 ML VIAL IV SCH (10:12)
[2024-02-23] MEDS: METOPROLOL SUCCINATE (ER) 25 MG TAB.ER.24H PO SCH (11:27)
[2024-02-23] MEDS: SACUBITRIL/VALSARTAN 24 MG-26 MG TABLET PO SCH (11:27)
[2024-02-23] MEDS: FUROSEMIDE 20 MG TAB PO SCH (11:28)
--- NOTE | 2024-02-23 19:09 | P.DS ---
Providers Date of admission: 02/22/24 12:50 Expected date of discharge: 02/23/24 Attending physician: Javon Zamora Primary care physician: Brett Castorena [facility] Course: 64-year-old male came in with abdominal distention denied any significant pain has been progressive over several weeks. Patient does have history of cirrhosis from alcohol and also has history of congestive heart failure is on Entresto although his ejection fraction is not known patient denied any fever chills nausea vomiting. Patient does not have any leukocytosis February 22 64-year-old patient, follows with Dr. Brett Castorena. Around 2021 diagnosed with cirrhosis - Did see Dr. Chava Mejias from GI. Initially. Has not followed in the last few months. [place]. Patient underwent paracentesis yesterday. About 11 L was removed. Today feeling much better. Up and about. Very keen to go home. Home medications been resumed. Counseled. Fluid restriction. Low-salt diet. Patient to follow-up with Dr. Chava Mejias outpatient. Social history: Lives alone. Smoked 2 packs a day for many years. Stopped 2 weeks ago. Drinking alcohol for long time last drink about 3 weeks ago. Physical examination: VITAL SIGNS: 98.5, 74, 18, 103 x 65, 95% room air GENERAL: Sitting at the edge of the bed, comfortable EYES: Pupils equal. Conjunctiva nolberto l. HEENT: External appearance of nose and ears normal, oral cavity grossly normal. NECK: JVD not raised; masses not palpable. HEART: First and second heart sounds are normal; no edema. LUNGS: Respiratory rate normal; decreased breath sounds. ABDOMEN: Soft, slight distention, nontender, liver spleen not palpable, no masses palpable. PSYCH: Alert and oriented x3; mood and affect nolberto l. . INVESTIGATIONS, reviewed in the clinical context: February 21: White count 7.9 hemoglobin 12.4 platelets 262 sodium 138 potassium 4.2 BUN 18 creatinine 0.[address] abdomen pelvis [July 2023]: Cirrhosis. Evidence of portal hypertension. Moderate to large ascites. Colonic diverticulosis. Gallstones. Assessment plan: -Symptomatic large ascites secondary to portal hypertension secondary to cirrhosis. 11 L o paracentesis. Fluid restriction. Low-sodium diet. Aldactone -Cirrhosis secondary to alcoholism Follow-up with Dr. Chava Mejias -Alcohol use disorder -Chronic nicotine dependent, patient counseled -Chronic congestive heart failure from systolic dysfunction. EF not known. Toprol-XL. Entresto. -COPD in current smoker Albuterol as needed -Full code Past Medical History Past Medical History: Heart Failure, GI Bleed, Hypertension, Liver Disease Additional Past Medical History / Comment(s): Left shoulder injury due to fall 6 months ago with steroid injection History of Any Multi-Drug Resistant Organisms: None Reported Additional Past Surgical History / Comment(s): pericentisis Past Anesthesia/Blood Transfusion Reactions: No Reported Reaction Past Psychological History: No Psychological Hx Reported Smoking Status: Current every day smoker Past Alcohol Use History: None Reported Past Drug Use History: Marijuana Plan - Discharge Summary Discharge Rx Participant: Yes New Discharge Prescriptions: Continue Sacubitril/Valsartan [Entresto 24 mg-26 mg Tablet] 1 tab PO BID Furosemide [Lasix] 20 mg PO DAILY Metoprolol Succinate (ER) [Toprol XL] 12.5 mg PO DAILY Discharge Medication List Furosemide [Lasix] 20 mg PO DAILY 08/16/23 [History] Metoprolol Succinate (ER) [Toprol XL] 12.5 mg PO DAILY 08/16/23 [History] Sacubitril/Valsartan [Entresto 24 mg-26 mg Tablet] 1 tab PO BID 08/16/23 [History] Follow up Appointment(s)/Referral(s): Brett Castorena MD [Primary Care Provider] - 1-2 days (office will call with appointment time) Melissa Mejias MD [STAFF PHYSICIAN] - 02/29/24 2:45 pm (With Daniel) Patient Instructions/Handouts: Ascites (DC), Paracentesis (DC) Activity/Diet/Wound Care/Special Instructions: fluid restict - 1600 cc/day Discharge Disposition: HOME SELF-CARE
== END 2024-02-23 12:07 | disposition home or self-care (01) ==
LOC: EC 10:03 → 5NMEDONC 12:50 → 4SSUR 17:27
PROVIDERS: ADMIT Hospitalist; ATTEND Hospitalist
DX: K70.31 Alcoholic cirrhosis of liver with ascites (principal); K76.6 Portal hypertension; I11.0 Hypertensive heart disease with heart failure; I50.22 Chronic systolic (congestive) heart failure; J44.9 Chronic obstructive pulmonary disease, unspecified; K57.30 Diverticulosis of large intestine without perforation or abscess without bleeding; K80.20 Calculus of gallbladder without cholecystitis without obstruction; F17.210 Nicotine dependence, cigarettes, uncomplicated; Z79.899 Other long term (current) drug therapy
CPT/HCPCS: 99285; 36415; 94640; 80053; 82042; 89050; 82150; 83690; 85025; 85610; 85730; 82945; 83615; 71046; 74018; 76705; 49083; G0378 ×3; P9047

== ENCOUNTER → 2024-03-21 | Outpatient (CLI) | payer MEDICARE, OTHER ==
[2024-03-21 10:11] LABS: HCT 41.1 % (39.6-50.0); HGB 13.8 g/dL (13.0-17.0); MCH 31.5 pg (27.0-32.0); MCHC 33.6 g/dL (32.0-37.0); MCV 93.8 FL (80.0-97.0); Mean Platelet Volume 10.5 FL (9.5-12.2); NRBC Per 100 WBC 0 X 10*3/uL (0.00-0.01); Platelet Count 253 X 10*3/uL (140-440); RBC 4.38 X 10*6/uL (4.40-5.60); RDW 14.2 % (11.5-14.5); WBC 8.79 X 10*3/uL (4.50-10.00)
[2024-03-21 10:12] LABS: Basophils # (A) 0.04 X 10*3/uL (0.00-0.10); Basophils % (A) 0.5 %; Eosinophils # (A) 0.24 X 10*3/uL (0.04-0.35); Eosinophils % (A) 2.7 %; Lymphocytes # (A) 2.14 X 10*3/uL (0.90-5.00); Lymphocytes % (A) 24.3 %; Monocytes # (A) 0.82 X 10*3/uL (0.20-1.00); Monocytes % (A) 9.3 %; Neutrophils # (A) 5.52 X 10*3/uL (1.80-7.70); Neutrophils % (A) 62.9 %
[2024-03-21 11:15] LABS: ALT 27 U/L (10-49); AST 46 U/L (14-35); Albumin 4.4 g/dL (3.8-4.9); Alkaline Phosphatase 251 U/L (41-126); Calcium 10.1 mg/dL (8.7-10.3); Chloride 97 mmol/L (96-109); Glucose 111 mg/dL (70-110); Potassium 4.9 mmol/L (3.5-5.5); Sodium 136 mmol/L (135-145); Total Bilirubin 0.7 mg/dL (0.3-1.2); Total Protein 8.4 g/dL (6.2-8.2)
--- NOTE | 2024-03-22 14:26 | US ---
EXAMINATION TYPE: US liver DATE OF EXAM: 03/21/2024 COMPARISON: Multiple, most recent 02/22/2024 CLINICAL INDICATION: Male, 64 years old with history of K70.31 ALCOHOLIC CIRRHOSIS OF LIVER WITH ASCI ADRIANE; Patient denies any signs or symptoms at this time TECHNIQUE: Grayscale and color Doppler imaging of the right upper quadrant was performed. FINDINGS: EXAM MEASUREMENTS: Liver Length: 17.8 cm Gallbladder Wall: 0.2 cm CBD: 0.9 cm Right Kidney: 11.1 x 5.5 x 5.3 cm ARCHITECT MARINE NOTES:Fluid seen within all four quadrants Pancreas: wnl Liver: Liver cirrhosis. Gallbladder: Multiple echogenic areas seen ? adherent to gallbladder wall Evidence for sonographic Almaraz's sign: No CBD: Dilated Right Kidney: wnl IMPRESSION 1 features of cirrhotic liver disease with ascites. 2. Dilated CBD. Multiple gallstones noted. [facility], , 03/22/2024 2:23 PM
== END | disposition home or self-care (01) ==
LOC: RADUSWWP 06:46
PROVIDERS: ATTEND Internal Medicine Gastroenterology
DX: K70.31 Alcoholic cirrhosis of liver with ascites (principal); K80.20 Calculus of gallbladder without cholecystitis without obstruction
CPT/HCPCS: 76705; 80053; 82105; 85025

== ENCOUNTER 2024-05-20 06:42 | Day surgery (SDC) | payer MEDICARE, OTHER ==
[~2024-05-20 06:42] MED LIST: LACTATED RINGERS 1,000 ML IV SCH
[2024-05-20 06:57] VITALS: TEMP 97.8
[2024-05-20] MEDS: IV FLUID CONTINUATION 1,000 ML IV ONE (07:09)
[2024-05-20] MEDS ORDERED: LIDOCAINE 1% INJ 10MG/ML (20 ML MDV) ONE (07:22)
[2024-05-20] MEDS ORDERED: PROPOFOL 10 MG/ML 20 ML VIAL IV ONE (07:22)
--- NOTE | 2024-05-20 07:58 | P.PCN ---
Date of Procedure: 05/20/24 Procedure(s) Performed: Brief history: Patient is a pleasant 64-year-old white male scheduled for an elective upper endoscopy as well as colonoscopy as a part of evaluation of history of liver cirrhosis and screening for esophageal varices as well as screening for colon cancer Procedure performed: Esophagogastroduodenoscopy with biopsy Colonoscopy with biopsy and snare polypectomy Preoperative diagnosis: History of liver cirrhosis screening for esophageal varices Screening for colon cancer Anesthesia: MAC Procedure: After informed consent was obtained from the patient was brought into the endoscopy unit and IV sedation was administered by anesthesia under continuous monitoring. Initially upper endoscopy was done. The Olympus GF 160 video endoscope was inserted inserted into the mouth and esophagus intubated without any difficulty and was gradually advanced into the stomach and duodenum and carefully examined. The bulb mild duodenitis and second part of the duodenum appeared normal. The scope was then withdrawn into the stomach adequately insufflated with air and upon careful examination the antrum had mild gastritis and biopsies were done from this area. Mucosa nd body, cardia and fundus appeared normal. No gastric varices seen. The scope was then withdrawn into the esophagus. The GE junction was located at 40 cm to the incisors. It appeared regular with no erythema erosions or ulcerations. Rest of the esophagus appeared normal. No esophageal varices seen. Patient tolerated the procedure well. At this time the patient continued to remain sedation. Initial digital rectal examination was normal. Olympus CF 160 video colonoscope was then inserted into the rectum and gradually advanced to the cecum without any difficulty. Careful examination was performed as the scope was gradually being withdrawn. The prep was excellent. The cecum, appeared normal. In the ascending colon there was a 3 mm polyp that was removed by cold biopsy. Rest of the ascending colon, transverse colon, descending colon, appeared normal. The sigmoid colon there was a 1 cm polyp removed by snare polypectomy. In the rectosigmoid colon there were 4 polyps measuring between 5 mm to 1 cm in size removed by snare polypectomy. In the rectum there was a 5 mm polyp removed by snare polypectomy. Rest of the sigmoid colon and rectum appeared normal. Retroflexion was performed in the rectum and grade 2 internal hemorrhoids were noted. Patient tolerated the procedure well. Impression: 1. Upper endoscopy revealed mild antral gastritis and duodenitis but no evidence of gastric or esophageal varices 2. Colonoscopy revealed: 3 mm ascending colon polyp status post cold biopsy 1 cm sigmoid colon polyp status post snare polypectomy 4 polyps in the rectosigmoid colon measuring between 5 mm to 1 cm in size status post snare polypectomy 7 mm rectal polyp status post polypectomy Grade 2 internal hemorrhoids Recommendations: Findings of this examination were discussed with the patient as well as his family. He was advised to follow-up with the biopsy results. If the biopsy reveals adenoma he can have repeat colonoscopy in 3 years. He can have repeat upper endoscopy for screening for esophageal varices in 3 years
[2024-05-20 08:21] VITALS: BP 118/72; PULSE 76; RESP 18
== END 2024-05-20 08:33 | disposition home or self-care (01) ==
LOC: ORWHC2ENDO 06:42
PROVIDERS: ATTEND Internal Medicine Gastroenterology
DX: Z12.11 Encounter for screening for malignant neoplasm of colon (principal); K74.60 Unspecified cirrhosis of liver; K62.1 Rectal polyp; K64.1 Second degree hemorrhoids; K63.5 Polyp of colon; K31.89 Other diseases of stomach and duodenum
CPT/HCPCS: 45380; 45385; 43239; J2003; J2704; 88305

== ENCOUNTER 2024-08-24 07:39 | Day surgery (SDC) | payer MEDICARE, OTHER ==
[2024-08-24 08:58] LABS: Mean Platelet Volume 10.1 fL (9.5-12.2); Platelet Count 241 10*3/uL (140-440)
[2024-08-24 09:03] VITALS: RESP 18; TEMP 97.9
[2024-08-24 09:13] LABS: African American GFR (CKD) 84 (>60 ml/min/1.73 sqM); Non-African American GFR(CKD) 73 (>60 ml/min/1.73 sqM)
[2024-08-24 09:14] LABS: Prothrombin Time 11.4 sec (10.0-12.5)
[2024-08-24] MEDS: ALBUMIN HUMAN 25% 50 ML in EMPTY BAG 1 BAG IVPB SCH (09:36)
[2024-08-24 10:42] VITALS: BP 111/69; PULSE 78
--- NOTE | 2024-08-24 15:30 | US ---
EXAMINATION TYPE: US paracentesis abd w/image DATE OF EXAM: August 24, 2024 COMPARISON: June 07, 2024 prior paracentesis. CLINICAL INDICATION:Male, 64 years old with history of K70.31 ALCOHOLIC CIRRHOSIS OF LIVER WITH ASCIT ES; , ascites ATTENDING: Dr. Hathaway PROCEDURE: Informed consent was obtained. The risks of the procedure were extensively explained incl uding risk of damage to surrounding bowel with perforation and need for additional procedures. Proced ure was performed in the ultrasound procedure suite. Ultrasound imaging of the abdomen demonstrate ascitic fluid. An appropriate access site was localized to the right lower abdomen. Timeout was taken per protocol. The skin was prepped and draped in the u sual sterile fashion and then locally anesthetized with 1% lidocaine. The peritoneal cavity was then accessed via a 5-[place] one-step needle/catheter. Approximately 3200 mL of clear straw-colored flui d was obtained. Patient tolerated procedure well without immediate complication. Hemostasis at the procedural site w as obtained with a sterile bandage placed. The patient was monitored in the holding area following th e procedure and was subsequently discharged in stable condition. IMPRESSION: Ultrasound guided paracentesis, with approximately 3200 mL of clear straw-colored fluid drained. No i mmediate complications were evident. [facility], , 08/24/2024 3:28 PM
== END 2024-08-24 10:30 | disposition home or self-care (01) ==
LOC: RADPROMAIN 07:39
PROVIDERS: ATTEND Internal Medicine Gastroenterology
DX: K70.31 Alcoholic cirrhosis of liver with ascites (principal)
CPT/HCPCS: 49083; 82565; 85049; 85610; 36415; P9047

== ENCOUNTER → 2024-09-14 | Outpatient (CLI) | payer MEDICARE, OTHER ==
--- NOTE | 2024-09-14 08:51 | US ---
EXAMINATION TYPE: US liver DATE OF EXAM: 09/14/2024 COMPARISON: CT 08/16/2023 CLINICAL INDICATION: Male, 64 years old with history of K70.31 ALCOHOLIC CIRRHOSIS OF LIVER W ASCITES ; Cirrhosis of liver TECHNIQUE: Grayscale and color Doppler imaging of the right upper quadrant. FINDINGS: EXAM MEASUREMENTS: Liver Length: 18.3 cm Gallbladder Wall: 0.3 cm CBD: 5.6 mm, color Doppler imaging was utilized to isolate the common bile duct for measurement. Right Kidney: 11.4 x 4.8 x 5.8 cm FREIGHT MANAGER NOTES: Exam limited by overlying bowel gas and body habitus. Pancreas: Tail obscured by overlying bowel gas, heterogeneous echotexture. Possible dilated main bolivar creatic duct up to 5 mm with some internal echoes within. Liver: Enlarged there are no focal lesions seen. Gallbladder: Scattered stones measuring up to 9 mm. Some anterior wall comet tail artifact suggestin g adenomyomatosis. Borderline distended. Evidence for sonographic Almaraz's sign: No CBD: Upper limits Right Kidney: Cyst again seen measuring 1.3 x 1.2 cm. Internal echoes could be artifactual or could represent debris. Column of Hernan noted. No hydronephrosis. Mild to moderate ascites adjacent to liver. IMPRESSION: 1. Very heterogeneous appearance to the pancreas may be technical. Questionable pancreatic duct dilat ation with internal debris versus appearance relating to the parenchymal heterogeneity. Consider foll ow-up CT or MRI to exclude any suspicious changes compared to the patient's prior 08/16/2023 CT. 2. Hepatomegaly at 18.3 cm. No sonographic evidence for hepatoma. 3. Scattered small gallstones measuring up to 9 mm along with adenomyomatosis. 3. Mild to moderate perihepatic ascites. [facility], Workstation: [email or web address], 09/14/2024 8:49 AM
[2024-09-14 15:41] LABS: ALT 23 U/L (10-49); AST 41 U/L (14-35); Albumin/Globulin Ratio 1.08 Ratio (1.60-3.17); Alkaline Phosphatase 236 U/L (41-126); BUN/Creat Ratio 31.54 Ratio (12.00-20.00); Calcium 9.1 mg/dL (8.7-10.3); Carbon Dioxide 22.6 mmol/L (21.6-31.8); Chloride 99 mmol/L (96-109); Globulin 3.7 g/dL (1.6-3.3); Glucose 102 mg/dL (70-110); Potassium 5.2 mmol/L (3.5-5.5); Sodium 134 mmol/L (135-145); Total Bilirubin 0.6 mg/dL (0.3-1.2); Total Protein 7.7 g/dL (6.2-8.2)
[2024-09-14 16:01] LABS: Basophils # (A) 0.05 X 10*3/uL (0.00-0.10); Basophils % (A) 0.7 %; Eosinophils # (A) 0.35 X 10*3/uL (0.04-0.35); Eosinophils % (A) 5.1 %; HCT 37.1 % (39.6-50.0); HGB 12.1 g/dL (13.0-17.0); Lymphocytes # (A) 1.53 X 10*3/uL (0.90-5.00); Lymphocytes % (A) 22.3 %; MCH 31.3 pg (27.0-32.0); MCHC 32.6 g/dL (32.0-37.0); MCV 96.1 FL (80.0-97.0); Mean Platelet Volume 10.2 FL (9.5-12.2); Monocytes # (A) 0.82 X 10*3/uL (0.20-1.00); Monocytes % (A) 11.9 %; NRBC Per 100 WBC 0 X 10*3/uL (0.00-0.01); Neutrophils # (A) 4.09 X 10*3/uL (1.80-7.70); Neutrophils % (A) 59.6 %; Platelet Count 255 X 10*3/uL (140-440); RBC 3.86 X 10*6/uL (4.40-5.60); RDW 14.6 % (11.5-14.5); WBC 6.87 X 10*3/uL (4.50-10.00)
== END | disposition home or self-care (01) ==
LOC: RADUSWWP 07:53
PROVIDERS: ATTEND Internal Medicine Gastroenterology
DX: K70.31 Alcoholic cirrhosis of liver with ascites (principal); R16.0 Hepatomegaly, not elsewhere classified; K80.20 Calculus of gallbladder without cholecystitis without obstruction; K82.8 Other specified diseases of gallbladder
CPT/HCPCS: 76705; 80053; 82105; 85025